=== PATIENT | female | born 1975 ===

== ENCOUNTER 2024-10-21 16:42 | Outpatient (CLI) | payer MEDICAID ==
[2024-10-21] MEDS ORDERED: GADOTERATE MEGLUMINE 7.5 MMOL/15 ML VIAL IV ONE (17:10)
--- NOTE | 2024-10-21 17:11 | RADIOLOGY REPORT ---
MR of the brain HISTORY: INTRACRANIAL ABSCESS AND GRANULOMA TECHNIQUE: MR was performed with a surface coil at 1.5 T magnet. Sagittal, axial and coronal T1 and T 2-weighted images were obtained. Study was done prior to and following IV administration of 15 mL of Gadavist. FINDINGS: No areas of restricted diffusion on diffusion-weighted images. There is a well circumscribed 9 mm lesion in the left frontal white matter with a hyperintense center and a hypointense rim. There is a faint area of edema surrounding this. Questionable linear signal hypointensity leading centrally towards the body of the left lateral ventricle. There is no hydrocephalus or midline shift. The orbits paranasal sinuses sella and cerebellopontine angles are unremarkable in appearance. There is some mucosal thickening in the mastoid sinus air cells There is a right temporal craniectomy. There is bulging of the right temporal lobe through the calvar ial defect. There is a 3.6 cm ring-like lesion external to the craniectomy site in the subcutaneous t issues. This demonstrates a fluid signal intensity center and a soft tissue periphery. There is evaristo a in the anterior right temporal lobe. IMPRESSION: 1. There is extension of a portion of the right temporal lobe through a craniectomy defect with a 3.6 cm portion of the brain extending into the subcutaneous scalp above the right ear. There is a small central fluid collection within this encephalocele which may represent a focus of abscess. 2. 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 Patient to be sent to the emergency room f or follow-up neurosurgical consult
== END 2024-10-21 23:59 | disposition home or self-care (01) ==
LOC: MRI 16:42
PROVIDERS: ATTEND Specialist
DX: G06.0 Intracranial abscess and granuloma (principal)
CPT/HCPCS: 70553; A9575